=== PATIENT | male | born 1940 | race Caucasian/White ===

== ENCOUNTER 2024-12-08 10:56 | Emergency (ER) | payer OTHER, SELFPAY ==
--- NOTE | 2024-12-08 11:42 | EKG_ITS ---
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
--- NOTE | 2024-12-08 11:42 | XR_ITS ---
Examination: CT abdomen and pelvis without contrast. Coronal 3-D reconstructions. Sagittal 2-D reconstructions. Date and time of exam:December 08, 2024 1155 hours INDICATIONS: Patient fell today with injury of the abdomen, left-sided flank pain after falling 3 days ago CTDI: vol (mGy): 8.34 DLP: (mGycm): 584 Technique: Axial images of the abdomen have been obtained, 3 mm slice thickness Intravenous contrast material has not been administered. Low dose protocols were performed. One or more of the following dose reduction techniques were used; automated exposure control, adjustment of the mA and/or KV according to patient size, use of iterative reconstruction technique. Findings: No liver splenic or renal laceration No perinephric hematoma 7 mm calculus in the left renal pelvis No gallstones No pancreatic or adrenal mass Abdominal aorta intact, no free blood in the abdomen or pelvis Colonic diverticulosis, no diverticulitis Prostatomegaly transverse dimension 4.6 cm Fat-containing left inguinal hernia Advanced degenerative disc disease L5-S1 IMPRESSION: No abdominal parenchymal laceration Abdominal aorta intact No free blood in the abdomen 7 mm calculus in the left renal pelvis, no hydronephrosis
--- NOTE | 2024-12-08 11:42 | XR_ITS ---
Examination: Ribs, left, with PA chest, 5 views Technique: Chest PA, RIBS AP, RPO, LPO, AP coned lower ribs 5 views Exam date and time: November 30, 1999 2512 noon INDICATIONS: Injury to the chest 2 days ago with left rib pain Findings: Normal heart size No pneumothorax Cardiac leads satisfactory position No acute rib fractures IMPRESSION: No pneumothorax pulmonary contusion or hemothorax Ribs appear intact
--- NOTE | 2024-12-08 11:43 | PD.EDRME ---
Rapid Medical Screening Exam RME Arrival date/time: 12/08/24 10:56 84-year-old male presents to the emergency department today stating that he was on the commode Saturday and fell off injuring left side of abdomen patient reports bruising to the area Chief Complaint: Fall
[2024-12-08 11:44] VITALS: BP 139/75; PULSE 69; RESP 18; TEMP 37; O2SAT 95; BMI 27.9
[2024-12-08 13:14] LABS: Basophils # (Auto) 0.1 Thou/mm3 (0.0-0.2); Basophils % (Auto) 1 % (0-2.5); Eosinophils # (Auto) 0.4 Thou/mm3 (0.0-0.5); Eosinophils % (Auto) 4 % (0-10); Hematocrit 42.8 % (41.0-53.0); Hemoglobin 14.4 g/dL (13.5-16.0); Immature Granulocytes % (Auto) 0 % (0-0); Immature Granulocytes Auto 0.03 Thou/mm3 (0.00-0.00); Lymphocytes # (Auto) 2.1 Thou/mm3 (1.0-4.8); Lymphocytes % (Auto) 21 % (10-50); Mean Corpuscular HGB Conc 33.6 g/dl (31.0-37.0); Mean Corpuscular Hemoglobin 30.1 pg (25.0-35.0); Mean Corpuscular Volume 89 fL (80-100); Monocytes % (Auto) 10 % (0-12); Neutrophils # (Auto) 6.5 Thou/mm3 (1.8-7.7); Neutrophils % (Auto) 64 % (37-80); Nucleated Red Blood Cell % 0 /100 WBC (0); Platelet Count 283 Thou/mm3 (140-440); RDW Standard Deviation 46.9 fL (35.1-43.9); Red Blood Count 4.79 Miln/mm3 (4.50-5.90); White Blood Count 10.1 Thou/mm3 (3.8-10.6)
[2024-12-08 13:41] LABS: B-Type Natriuretic Peptide < 20 pg/mL (0-100)
[2024-12-08 14:19] LABS: Alanine Aminotransferase 19 U/L (10-49); Albumin/Globulin Ratio 1.7 (1.2-2.2); Alkaline Phosphatase 121 U/L (46-116); Anion Gap 8 (7-16); Aspartate Amino Transferase 27 U/L (0-34); BUN/Creatinine Ratio 8 Ratio (12-20); Bilirubin,Total 0.5 mg/dL (0.3-1.2); Blood Urea Nitrogen 11 mg/dL (9-23); Calcium 10.5 mg/dL (8.3-10.6); Calcium (Corrected) 10.5 mg/dL (8.5-10.1); Chloride 100 mMol/L (98-107); Creatinine (Component) 1.3 mg/dL (0.6-1.3); Estimated Creatinine Clearance 46.5 mL/min (>60); Globulin 2.9 gm/dL (2.3-3.5); Glucose 146 mg/dL (74-106); Osmolality,Calculated 276 (275-295); Potassium 3.7 mMol/L (3.4-5.1); Sodium 137 mMol/L (136-145); Total Protein 7.9 gm/dL (5.7-8.2); Troponin I < 0.020 ng/mL (0.0-0.045); eGFR 54 See Note
--- NOTE | 2024-12-08 14:42 | PD.EDFALL ---
ED Fall Injury RME/HPI General Chief Complaint: Fall Stated Complaint: fell on saturday onto left ribs, no loc, Time Seen by Provider: 12/08/24 13:26 Arrival date/time: 12/08/24 10:56 RME / HPI RME / HPI Narrative: 12/08/24 10:56 84-year-old male presents to the emergency department today stating that he was on the commode Saturday and fell off injuring left side of abdomen patient reports bruising to the area This section includes all my notes and documentations, including HPI, PE, and ED course. Shadi Melara MD HPI: 84-year-old male here to be evaluated at home, in the bathroom, the day before yesterday. Had a mechanical fall and landed on his left flank area. No head injury. No syncope or near syncope. He has been battling vertigo for the past several months. Has been working with neurologist. Reports severe pain in the left flank region. No neck pain or back pain. No chest pain. No pain in the arms or legs. No other complaints. ROS: All negative except as documented in HPI. Physical Exam: General: Alert and oriented. No acute distress. Eyes: Conjunctivae and lids clear. EOMI. PERRL. ENT: No signs of head trauma. Neck: Supple. No tenderness. Heart: RRR. Lungs: No respiratory distress. Good air movement. No rhonchi, wheezing, rales. Chest: No tenderness. Abdomen: Soft and nontender. Normal bowel sounds. No distension. No rebound or guarding. Back: No tenderness. Legs: No clubbing, cyanosis, edema. Skin: Warm and dry. In the left flank area, there is a large dali sized ecchymosis. Neuro: Alert and oriented X 3. Cranial Nerves II-XII grossly intact. No peripheral motor deficits. Musculoskeletal: All major joints and bones are not tender with no limited ROM. I reviewed all diagnostic test results. My interpretation of the EKG is sinus rhythm with no acute ST?T changes. My review of the abdominal CT report is no acute findings. Blood tests unremarkable. At this point, diagnoses include abdominal wall contusion. Treatment here included Recommended supportive care. Based on my best medical judgment, made decision no further evaluation or treatment indicated at this time. Patient understands and agrees to the discharge instructions customized and printed, see below. Discharge instructions from Dr. Melara: ? After extensive evaluation, there is no very serious injury. Such as internal organ injury or broken bone. You sustained abdominal wall contusion. Apply ice for 20 minutes every 2-3 hours today and tomorrow. Tylenol with codeine for severe pain. -- For your severe vertigo dizziness: Use scopolamine patch and/or meclizine as needed. And Zofran for nausea/vomiting.? And increase oral fluid to prevent dehydration.? Maintain clear urine.? If dark or yellow, increase oral fluid. And do everything very slowly.? Including moving your head.? And when you sit up or stand up, wait a minute before you progress.? -- See your neurologist on 12/10/2024 for recheck and further care. -- Seek immediate medical care with worsening or with any concerns. Shadi Melara MD Related Data Home Medications ?Medication ?Instructions ?Recorded ?Confirmed amlodipine 10 mg tablet (Norvasc) 10 mg PO QDAY #0 tabs 10/20/14 09/29/20 atorvastatin 20 mg tablet (Lipitor) 20 mg PO EVERYOTHERDAY #0 tabs 10/20/14 12/20/21 benazepril 20 mg tablet (Lotensin) 40 mg PO BID #0 tabs 10/20/14 09/29/20 clonazepam 2 mg tablet (Klonopin) 1 mg PO HS #0 tabs 10/20/14 12/20/21 gabapentin 300 mg capsule 300 mg PO TID #0 caps 10/20/14 12/20/21 tizanidine 4 mg tablet (Zanaflex) 6 mg PO HS #0 tabs 10/20/14 12/20/21 duloxetine 20 mg capsule,delayed 90 mg PO DAILY #0 caps 03/14/17 12/20/21 release (Cymbalta) doxazosin 4 mg tablet,extended 1 mg PO QPM #0 tabs 10/07/17 09/29/20 release 24 hr (Cardura XL) finasteride 5 mg tablet 5 mg PO HS 05/28/19 12/20/21 tamsulosin 0.4 mg capsule (Flomax) 0.4 mg PO HS 10/14/19 12/20/21 aripiprazole 2 mg tablet (Abilify) 2 mg PO DAILY 12/20/21 12/20/21 benazepril 20 1 tab PO DAILY 12/20/21 12/20/21 mg-hydrochlorothiazide 12.5 mg tablet (Lotensin HCT) docusate sodium 100 mg capsule 100 mg PO BID 12/20/21 12/20/21 (Colace) minoxidil 10 mg tablet 10 mg PO DAILY 12/20/21 12/20/21 minoxidil 10 mg tablet mg 12/20/21 12/20/21 Previous Rx's ?Medication ?Instructions ?Recorded tramadol 50 mg tablet 50 mg PO Q6H #14 tabs 10/15/19 acetaminophen 300 mg-codeine 30 mg 2 tab PO TID PRN pain #20 tabs 12/08/24 tablet meclizine 25 mg tablet 25 mg PO BID PRN dizziness #20 tabs 12/08/24 ondansetron 4 mg disintegrating 4 mg PO TID PRN nausea and 12/08/24 tablet vomiting 5 days #10 tabs scopolamine base 1 mg over 3 days 1 mg topical .72 hour PRN 12/08/24 transdermal patch dizziness or vertigo #4 ea Allergies Allergy/AdvReac Type Severity Reaction Status Date / Time No Known Allergies Allergy Verified 08/07/24 10:44 Course Quality Measures none Orders Category Date Time Status EKG (ED ONLY) *Do not use* NOW Care 12/08/24 11:[address] abdomen pelvis wo con Stat Exams 12/08/24 11:42 Completed EKG (ED Only) Stat Exams 12/08/24 11:42 Draft XR ribs LT min 3V w CXR1V Stat Exams 12/08/24 11:42 Completed B-Type Natriuretic Peptide Stat Lab 12/08/24 12:33 Completed CBC Stat Lab 12/08/24 12:33 Completed Comprehensive Metabolic Panel Stat Lab 12/08/24 12:33 Completed Troponin I Stat Lab 12/08/24 12:33 Completed Urinalysis Stat Lab 12/08/24 11:42 Ordered Vital Signs Vital signs: Vital Signs Temperature 98.6 F 12/08/24 11:44 Pulse Rate 69 12/08/24 11:44 Respiratory Rate 18 12/08/24 11:44 Blood Pressure 139/75 H 12/08/24 11:44 Pulse Oximetry (%) 95 12/08/24 11:44 Oxygen Delivery Method Room Air 12/08/24 11:44 Fall Patient data External records reviewed:: [facility] previous records Clinical information provided by:: patient and spouse Social determinants that could affect healthcare access:: none Patient has the following chronic illnesses:: Vertigo How is presenting disease/condition affected by chronic disease/condition?: exacerbated by Evaluation data The following diagnostics were reviewed and interpreted by me:: lab results, radiology exam(s) and EKG tracing(s) Lab and/or radiology exams considered but not ordered:: None Interpretation Summary: Negative diagnostics Medications / Prescriptions Medications or Prescriptions considered but not ordered:: None Medication administrations:: None Consultations Consultation(s) initiated? (list below): No Diagnosis Fall Differential Diagnosis: syncope, compression fracture, concussion with loss of consciousness, concussion without loss of consciousness and other (Internal organ injury, fracture, IN) Most likely diagnosis given after review of the tests above:: Abdominal wall contusion Admission Indicated Admission indicated?: not indicated Explain why admission is indicated or not indicated:: Admission criteria not met Admission Request Was there a request for admission?: No Disposition Plan Disposition Plan: Discharge Discharge Attestation Discharge Attestation: The patient and all family members were given an opportunity to ask questions and understood the discharge instructions. Discharge instructions specifically effects, indications for sooner follow up or return to the emergency department, and the expected course of current diagnosis. Patient condition: Stable Discharge Plan Plan Patient Disposition: HOME (Self Care) Prescriptions/Referrals Prescriptions/Med Rec: New acetaminophen-codeine 300-30 mg tablet 2 tab PO TID MDD 6 PRN (Reason: pain) Qty: 20 0RF meclizine 25 mg tablet 25 mg PO BID PRN (Reason: dizziness) Qty: 20 0RF scopolamine base 1 mg over 3 days patch 3 day 1 mg topical .72 hour PRN (Reason: dizziness or vertigo) Qty: 4 0RF ondansetron 4 mg tablet,disintegrating 4 mg PO TID PRN (Reason: nausea and vomiting) 5 Days Qty: 10 0RF No Action finasteride 5 mg tablet 5 mg PO HS amlodipine [Norvasc] 10 MG tablet 10 mg PO QDAY Qty: 0 benazepril [Lotensin] 20 MG tablet 40 mg PO BID Qty: 0 atorvastatin [Lipitor] 20 MG tablet 20 mg PO EVERYOTHERDAY Qty: 0 tizanidine [Zanaflex] 4 MG tablet 6 mg PO HS Qty: 0 clonazepam [Klonopin] 2 MG tablet 1 mg PO HS Qty: 0 gabapentin 300 MG capsule 300 mg PO TID Qty: 0 duloxetine [Cymbalta] 20 MG capsule,delayed release(DR/EC) 90 mg PO DAILY Qty: 0 Cardura XL 4 MG/BOTTLE tablet extended release 24 hr 1 mg PO QPM Qty: 0 tamsulosin [Flomax] 0.4 mg Capsule 0.4 mg PO HS tramadol 50 mg tablet 50 mg PO Q6H MDD 1 Qty: 14 0RF benazepril-hydrochlorothiazide [Lotensin HCT] 20-12.5 mg Tablet 1 tab PO DAILY minoxidil 10 mg tablet 10 mg PO DAILY Patient Comments: TAKE 1 TABLET BY MOUTH EVERY DAY minoxidil 10 mg tablet docusate sodium [Colace] 100 mg Capsule 100 mg PO BID aripiprazole [Abilify] 2 mg Tablet 2 mg PO DAILY Referrals: Calixto Bianchi MD [Primary Care Provider] - In 1 week Problem List Clinical Impression: Abdominal wall contusion, Vertigo Patient/Caregiver Discharge Instructions Discharge Activity: activity as tolerated Education Materials: ED Soft Tissue Contusion, ED Vertigo, Unspecified Additional Instructions: Discharge instructions from Dr. Melara: ? After extensive evaluation, there is no very serious injury. Such as internal organ injury or broken bone. You sustained abdominal wall contusion. Apply ice for 20 minutes every 2-3 hours today and tomorrow. Tylenol with codeine for severe pain. -- For your severe vertigo dizziness: Use scopolamine patch and/or meclizine as needed. And Zofran for nausea/vomiting.? And increase oral fluid to prevent dehydration.? Maintain clear urine.? If dark or yellow, increase oral fluid. And do everything very slowly.? Including moving your head.? And when you sit up or stand up, wait a minute before you progress.? -- See your neurologist on 12/10/2024 for recheck and further care. -- Seek immediate medical care with worsening or with any concerns. Print Language: Niuean Stand Alone Forms: [facility]helia Award Info., Patient Portal Info Letter
[2024-12-08 15:23] LABS: Collection Type, Urine Clean Catch; Squamous Epithelial Cell,Urine 0 /hpf (0-5)
[2024-12-08 15:33] LABS: Bilirubin,Urine Negative (Negative); Blood,Urine Trace (Negative); Clarity,Urine Clear (Clear/Hazy); Color,Urine Lt-Yellow (Lt Yel-Yel); Glucose, Urine Negative (Negative); Ketones,Urine Negative (Negative); Leukocyte Esterase,Urine Negative (Negative); Nitrite,Urine Negative (Negative); Protein,Urine Trace (Neg - Trace); RBC,Urine 11 /hpf (0-3); Specific Gravity,Urine 1.016 (1.001-1.035); Urobilinogen,Urine Negative mg/dL (0.0-1.0); WBC,Urine 2 /hpf (0-5)
== END 2024-12-08 14:55 | disposition home or self-care (01) ==
PROVIDERS: Nurse Practitioner Primary Care; Emergency Provider Emergency Medicine; PCP Internal Medicine
DX: S30.1XXA Contusion of abdominal wall, initial encounter (principal); S29.9XXA Unspecified injury of thorax, initial encounter; R42 Dizziness and giddiness; I49.1 Atrial premature depolarization; W19.XXXA Unspecified fall, initial encounter
CPT/HCPCS: 36415; 71101; 74176; 80053; 81001; 83880; 84484; 85025; 93005; 99284

== ENCOUNTER → 2024-12-22 | Outpatient (CLI) | payer OTHER, SELFPAY ==
[2024-12-22 09:19] LABS: Basophils # (Auto) 0.1 Thou/mm3 (0.0-0.2); Basophils % (Auto) 1 % (0-2.5); Eosinophils # (Auto) 0.4 Thou/mm3 (0.0-0.5); Eosinophils % (Auto) 5 % (0-10); Hematocrit 40.4 % (41.0-53.0); Hemoglobin 13.6 g/dL (13.5-16.0); Immature Granulocytes % (Auto) 0 % (0-0); Immature Granulocytes Auto 0.02 Thou/mm3 (0.00-0.00); Lymphocytes % (Auto) 26 % (10-50); Mean Corpuscular HGB Conc 33.7 g/dl (31.0-37.0); Mean Corpuscular Hemoglobin 30.4 pg (25.0-35.0); Mean Corpuscular Volume 90 fL (80-100); Monocytes # (Auto) 0.7 Thou/mm3 (0.0-0.8); Monocytes % (Auto) 9 % (0-12); Neutrophils # (Auto) 4.6 Thou/mm3 (1.8-7.7); Neutrophils % (Auto) 59 % (37-80); Nucleated Red Blood Cell % 0 /100 WBC (0); Platelet Count 321 Thou/mm3 (140-440); RDW Standard Deviation 47.4 fL (35.1-43.9); Red Blood Count 4.48 Miln/mm3 (4.50-5.90); White Blood Count 7.7 Thou/mm3 (3.8-10.6)
[2024-12-22 09:23] LABS: Collection Type, Urine Clean Catch
[2024-12-22 09:39] LABS: Alanine Aminotransferase 22 U/L (10-49); Albumin, Serum 4.8 gm/dL (3.4-4.8); Albumin/Globulin Ratio 1.9 (1.2-2.2); Alkaline Phosphatase 101 U/L (46-116); Anion Gap 8 (7-16); Aspartate Amino Transferase 25 U/L (0-34); BUN/Creatinine Ratio 18 Ratio (12-20); Bilirubin,Total 0.6 mg/dL (0.3-1.2); Blood Urea Nitrogen 22 mg/dL (9-23); Calcium 10.3 mg/dL (8.3-10.6); Calcium (Corrected) 10.3 mg/dL (8.5-10.1); Carbon Dioxide 30.9 mMol/L (20.0-31.0); Cardiac Risk Estimate 2.8 RATIO (4.0-6.7); Chloride 101 mMol/L (98-107); Cholesterol 149 mg/dL (132-200); Creatinine (Component) 1.2 mg/dL (0.6-1.3); Globulin 2.5 gm/dL (2.3-3.5); Glucose 137 mg/dL (74-106); HDL Cholesterol 54 mg/dL (40-60); LDL Cholesterol,Calculated 67 mg/dL (0-130); Osmolality,Calculated 284 (275-295); Potassium 3.6 mMol/L (3.4-5.1); Sodium 140 mMol/L (136-145); Total Protein 7.3 gm/dL (5.7-8.2); Triglycerides 140 mg/dL (30-150); eGFR 59 See Note
[2024-12-22 09:45] LABS: Bilirubin,Urine Negative (Negative); Blood,Urine Negative (Negative); Clarity,Urine Clear (Clear/Hazy); Color,Urine Lt-Yellow (Lt Yel-Yel); Glucose, Urine Negative (Negative); Hyaline Casts,Urine < 1 /hpf (0-1); Ketones,Urine Negative (Negative); Leukocyte Esterase,Urine Negative (Negative); Nitrite,Urine Negative (Negative); PH,Urine 6.5 (5.0-7.0); Protein,Urine Negative (Neg - Trace); RBC,Urine 2 /hpf (0-3); Specific Gravity,Urine 1.014 (1.001-1.035); Squamous Epithelial Cell,Urine < 1 /hpf (0-5); Urobilinogen,Urine Negative mg/dL (0.0-1.0); WBC,Urine 1 /hpf (0-5)
== END | disposition home or self-care (01) ==
LOC: COPL 08:24
PROVIDERS: PCP Internal Medicine; Referring Provider Internal Medicine; Visit Provider Internal Medicine
DX: I10 Essential (primary) hypertension (principal); E78.5 Hyperlipidemia, unspecified
CPT/HCPCS: 36415; 80053; 80061; 81001; 85025

== ENCOUNTER → 2025-03-18 | Outpatient (CLI) | payer OTHER, SELFPAY ==
[2025-03-18 11:37] LABS: Anion Gap 8 (7-16); BUN/Creatinine Ratio 14 Ratio (12-20); Blood Urea Nitrogen 17 mg/dL (9-23); Calcium 9.6 mg/dL (8.3-10.6); Calcium (Corrected) 9.6 mg/dL (8.5-10.1); Carbon Dioxide 30.9 mMol/L (20.0-31.0); Chloride 98 mMol/L (98-107); Creatinine (Component) 1.2 mg/dL (0.6-1.3); Glucose 142 mg/dL (74-106); Osmolality,Calculated 277 (275-295); Potassium 3.3 mMol/L (3.4-5.1); Sodium 137 mMol/L (136-145); eGFR 59 See Note
[2025-03-18 12:27] LABS: Creatinine MALB Rnd Ur 71 mg/dL (30-125); Microalbumin Creat Ratio 17 mg/gCrea (<30); Microalbumin, Random Urine 12 mg/L (0-300)
[2025-03-18 13:45] LABS: Glucose Estimated Average 151 mg/dL (80-131); Hemoglobin A1C 6.9 % Hgb (4.8-6.0)
== END | disposition home or self-care (01) ==
LOC: COPL 10:02
PROVIDERS: PCP Internal Medicine; Referring Provider Internal Medicine; Visit Provider Internal Medicine
DX: E11.22 Type 2 diabetes mellitus with diabetic chronic kidney disease (principal); N18.30 Chronic kidney disease, stage 3 unspecified
CPT/HCPCS: 36415; 80069; 82043; 82570; 83036

== ENCOUNTER → 2025-03-22 | Outpatient (CLI) | payer OTHER, SELFPAY ==
[2025-03-22 10:50] LABS: OBS Performed By LAB; OBS QC OK? Yes
[2025-03-22 14:19] LABS: OBS Developer Lot # 551749; Occult Blood, Stool Positive (Negative); Occult Blood, Stool #2 Negative (Negative); Occult Blood, Stool #3 Negative (Negative)
== END | disposition home or self-care (01) ==
LOC: SLDO 10:36
PROVIDERS: Referring Provider Internal Medicine; Visit Provider Internal Medicine
DX: Z12.11 Encounter for screening for malignant neoplasm of colon (principal)
CPT/HCPCS: 82270

== ENCOUNTER → 2025-06-22 | Outpatient (CLI) | payer OTHER, SELFPAY ==
[2025-06-22 11:35] LABS: Basophils # (Auto) 0.1 Thou/mm3 (0.0-0.2); Basophils % (Auto) 1 % (0-2.5); Eosinophils # (Auto) 0.2 Thou/mm3 (0.0-0.5); Eosinophils % (Auto) 3 % (0-10); Hematocrit 40.5 % (41.0-53.0); Hemoglobin 13.4 g/dL (13.5-16.0); Immature Granulocytes Auto 0.01 Thou/mm3 (0.00-0.00); Lymphocytes # (Auto) 1.8 Thou/mm3 (1.0-4.8); Lymphocytes % (Auto) 32 % (10-50); Mean Corpuscular HGB Conc 33.1 g/dl (31.0-37.0); Mean Corpuscular Hemoglobin 29.3 pg (25.0-35.0); Mean Corpuscular Volume 88 fL (80-100); Monocytes # (Auto) 0.5 Thou/mm3 (0.0-0.8); Monocytes % (Auto) 8 % (0-12); Neutrophils # (Auto) 3.0 Thou/mm3 (1.8-7.7); Neutrophils % (Auto) 55 % (37-80); Nucleated Red Blood Cell # 0.00 Thou/mm3 (0.00-0.00); Nucleated Red Blood Cell % 0 /100 WBC (0); Platelet Count 278 Thou/mm3 (140-440); RDW Standard Deviation 51.1 fL (35.1-43.9); Red Blood Count 4.58 Miln/mm3 (4.50-5.90); White Blood Count 5.5 Thou/mm3 (3.8-10.6)
[2025-06-22 11:55] LABS: Alanine Aminotransferase 19 U/L (10-49); Albumin, Serum 4.7 gm/dL (3.4-4.8); Albumin/Globulin Ratio 2.0 (1.2-2.2); Alkaline Phosphatase 83 U/L (46-116); Anion Gap 12 (7-16); Aspartate Amino Transferase 26 U/L (0-34); BUN/Creatinine Ratio 15 Ratio (12-20); Bilirubin,Total 0.6 mg/dL (0.3-1.2); Blood Urea Nitrogen 18 mg/dL (9-23); Calcium 9.4 mg/dL (8.3-10.6); Calcium (Corrected) 9.4 mg/dL (8.5-10.1); Carbon Dioxide 25.3 mMol/L (20.0-31.0); Cardiac Risk Estimate 2.8 RATIO (4.0-6.7); Chloride 106 mMol/L (98-107); Cholesterol 124 mg/dL (132-200); Creatinine (Component) 1.2 mg/dL (0.6-1.3); Globulin 2.4 gm/dL (2.3-3.5); Glucose 103 mg/dL (74-106); HDL Cholesterol 44 mg/dL (40-60); LDL Cholesterol,Calculated 58 mg/dL (0-130); Osmolality,Calculated 286 (275-295); Potassium 3.8 mMol/L (3.4-5.1); Sodium 143 mMol/L (136-145); Total Protein 7.1 gm/dL (5.7-8.2); Triglycerides 111 mg/dL (30-150); eGFR 59 See Note
[2025-06-22 12:21] LABS: Collection Type, Urine Clean Catch; Squamous Epithelial Cell,Urine 0 /hpf (0-5)
[2025-06-22 12:41] LABS: Bilirubin,Urine Negative (Negative); Blood,Urine Trace (Negative); Clarity,Urine Clear (Clear/Hazy); Color,Urine Lt-Yellow (Lt Yel-Yel); Glucose, Urine Negative (Negative); Ketones,Urine Negative (Negative); Leukocyte Esterase,Urine Negative (Negative); Nitrite,Urine Negative (Negative); PH,Urine 6.0 (5.0-7.0); Protein,Urine Negative (Neg - Trace); RBC,Urine 2 /hpf (0-3); Specific Gravity,Urine 1.020 (1.001-1.035); Urobilinogen,Urine Negative mg/dL (0.0-1.0); WBC,Urine 1 /hpf (0-5)
== END | disposition home or self-care (01) ==
LOC: COPL 11:05
PROVIDERS: PCP Internal Medicine; Referring Provider Internal Medicine; Visit Provider Internal Medicine
DX: I10 Essential (primary) hypertension (principal); E78.5 Hyperlipidemia, unspecified
CPT/HCPCS: 36415; 80053; 80061; 81001; 85025

== ENCOUNTER → 2025-10-14 | Outpatient (CLI) | payer OTHER, SELFPAY ==
[2025-10-14 09:04] LABS: Collection Type, Urine Clean Catch
[2025-10-14 09:54] LABS: Basophils # (Auto) 0.1 Thou/mm3 (0.0-0.2); Basophils % (Auto) 1 % (0-2.5); Eosinophils # (Auto) 0.2 Thou/mm3 (0.0-0.5); Eosinophils % (Auto) 4 % (0-10); Hematocrit 42.3 % (41.0-53.0); Hemoglobin 13.7 g/dL (13.5-16.0); Immature Granulocytes Auto 0.01 Thou/mm3 (0.00-0.00); Lymphocytes # (Auto) 1.7 Thou/mm3 (1.0-4.8); Lymphocytes % (Auto) 32 % (10-50); Mean Corpuscular HGB Conc 32.4 g/dl (31.0-37.0); Mean Corpuscular Hemoglobin 29.3 pg (25.0-35.0); Mean Corpuscular Volume 90 fL (80-100); Monocytes # (Auto) 0.5 Thou/mm3 (0.0-0.8); Monocytes % (Auto) 10 % (0-12); Neutrophils # (Auto) 2.8 Thou/mm3 (1.8-7.7); Neutrophils % (Auto) 52 % (37-80); Nucleated Red Blood Cell # 0.00 Thou/mm3 (0.00-0.00); Nucleated Red Blood Cell % 0 /100 WBC (0); Platelet Count 298 Thou/mm3 (140-440); RDW Standard Deviation 49.9 fL (35.1-43.9); Red Blood Count 4.68 Miln/mm3 (4.50-5.90); White Blood Count 5.4 Thou/mm3 (3.8-10.6)
[2025-10-14 10:05] LABS: Bilirubin,Urine Negative (Negative); Blood,Urine Negative (Negative); Clarity,Urine Clear (Clear/Hazy); Color,Urine Lt-Yellow (Lt Yel-Yel); Glucose, Urine Negative (Negative); Ketones,Urine Negative (Negative); Leukocyte Esterase,Urine Negative (Negative); Nitrite,Urine Negative (Negative); PH,Urine 6.0 (5.0-7.0); Protein,Urine Negative (Neg - Trace); RBC,Urine 4 /hpf (0-3); Specific Gravity,Urine 1.017 (1.001-1.035); Squamous Epithelial Cell,Urine 1 /hpf (0-5); Urobilinogen,Urine Negative mg/dL (0.0-1.0); WBC,Urine 1 /hpf (0-5)
[2025-10-14 10:12] LABS: Creatinine MALB Rnd Ur 81 mg/dL (30-125); Microalbumin Creat Ratio 25 mg/gCrea (<30); Microalbumin, Random Urine 20 mg/L (0-300)
[2025-10-14 10:22] LABS: Alanine Aminotransferase 22 U/L (10-49); Albumin, Serum 5.1 gm/dL (3.4-4.8); Albumin/Globulin Ratio 2.0 (1.2-2.2); Alkaline Phosphatase 87 U/L (46-116); Anion Gap 10 (7-16); Aspartate Amino Transferase 29 U/L (0-34); BUN/Creatinine Ratio 13 Ratio (12-20); Bilirubin,Total 0.7 mg/dL (0.3-1.2); Blood Urea Nitrogen 16 mg/dL (9-23); Calcium 9.5 mg/dL (8.3-10.6); Calcium (Corrected) 9.5 mg/dL (8.5-10.1); Carbon Dioxide 27.6 mMol/L (20.0-31.0); Cardiac Risk Estimate 2.8 RATIO (4.0-6.7); Chloride 104 mMol/L (98-107); Cholesterol 139 mg/dL (132-200); Creatinine (Component) 1.2 mg/dL (0.6-1.3); Globulin 2.6 gm/dL (2.3-3.5); Glucose 117 mg/dL (74-106); HDL Cholesterol 50 mg/dL (40-60); LDL Cholesterol,Calculated 61 mg/dL (0-130); Osmolality,Calculated 285 (275-295); Potassium 3.4 mMol/L (3.4-5.1); Sodium 142 mMol/L (136-145); Thyroid Stimulating Hormone 1.42 uIU/mL (0.55-4.78); Total Protein 7.7 gm/dL (5.7-8.2); Triglycerides 141 mg/dL (30-150); eGFR 59 See Note
== END | disposition home or self-care (01) ==
PROVIDERS: PCP Internal Medicine; Referring Provider Internal Medicine; Visit Provider Internal Medicine
DX: I12.9 Hypertensive chronic kidney disease with stage 1 through stage 4 chronic kidney disease, or unspecified chronic kidney disease (principal); N18.30 Chronic kidney disease, stage 3 unspecified; E78.5 Hyperlipidemia, unspecified
CPT/HCPCS: 36415; 80053; 80061; 81001; 82043; 82570; 84443; 85025